=== PATIENT | male | born 1985 | race Caucasian/White ===

== ENCOUNTER 2022-04-10 20:21 | Emergency (ER) | payer SELFPAY ==
[~2022-04-10] VITALS: Ht 172.7 cm; Wt 71.2 kg
[2022-04-10 21:26] VITALS: BP 143/74
--- NOTE | 2022-04-10 21:34 | NUR ---
PT TAKEN TO BED 7
--- NOTE | 2022-04-10 21:43 | NUR ---
37/M BIB SELF C/C OF RIGHT FOREARM LACERATION X 730PM S/P MIRROR GLASS FALLING ON HAND. PAIN IS 6/10 AND "PULSATING" WITH MOVEMENT. PATIENT STATED THAT IN THE LAST TWO HOURS AREA HASNT STOPPED BLEEDING AND BECAME RED AND SWOLLEN. PATIENT IS AAOX4 AND AMBULATORY. DOESNT RECALL WHEN LAST TDAP WAS ADMINISTERED. 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 DENIES PMHX, RX NKA
--- NOTE | 2022-04-10 21:45 | NUR ---
PT'S LAC CLEANED AND IRRIGATED WITH WARM WATER AND BETADINE
--- NOTE | 2022-04-10 22:09 | NUR ---
[facility] in [facility] - 04/10/22 at [address] Fitzpatrick examining patient.
--- NOTE | 2022-04-10 22:21 | NUR ---
Dr. Fitzpatrick examining patient.
[2022-04-10] MEDS ORDERED: IBUP-2213 PO (22:50)
[2022-04-10 23:01] VITALS: BP 136/74
--- NOTE | 2022-04-10 23:01 | NUR ---
Chart checked and completed.
--- NOTE | 2022-04-10 23:01 | NUR ---
Patient discharged with v/s stable. Written and verbal after care instructions given WOUND and explained. Patient alert, oriented and verbalized understanding of instructions. Ambulatory with steady gait. All questions addressed prior to discharge. ID band removed. Patient advised to follow up with PMD. Rx of IBUPROFEN given.
== END 2022-04-10 23:01 | disposition home or self-care (01) ==
LOC: MED 20:21
DX: S51.811A Laceration without foreign body of right forearm, initial encounter (principal); F17.210 Nicotine dependence, cigarettes, uncomplicated; Z88.0 Allergy status to penicillin; W25.XXXA Contact with sharp glass, initial encounter; Y93.89 Activity, other specified; Y92.89 Other specified places as the place of occurrence of the external cause; Y99.8 Other external cause status
CPT/HCPCS: 12001; 90471; 90715; 99283